=== PATIENT | male | born 1980 | race Caucasian/White ===

== ENCOUNTER 2017-07-31 10:21 | Emergency (ER) | payer MEDICAID ==
[~2017-07-31] VITALS: Ht 162.6 cm; Wt 79.5 kg
[2017-07-31 10:31] VITALS: BP 124/79
--- NOTE | 2017-07-31 10:44 | NUR ---
Patient ambulated to bed 12. RN evaluating patient at bedside.
--- NOTE | 2017-07-31 10:48 | NUR ---
37 bib self yo male with right eye pain x 3 days. Pt states he feels something is in his eye. Pt denies recent trauma. Pt describes sharp intermittent 8/10 pain in right eye without radiation. Redness noted to bl eyes. AOx4. Vss.
[2017-07-31] MEDS ORDERED: FLUORESCEIN OPTH STRIP 1 MG OP ONE (10:55)
--- NOTE | 2017-07-31 10:58 | NUR ---
Dr. Hawthorne evaluating patient at bedside.
[2017-07-31] MEDS ORDERED: FLUORESCEIN OPTH STRIP 1 MG ONE (11:05)
[2017-07-31 11:20] VITALS: BP 123/79
--- NOTE | 2017-07-31 11:20 | NUR ---
Patient discharged with v/s stable. Written and verbal after care instructions given and explained. Patient alert, oriented and verbalized understanding of instructions. Ambulatory with steady gait. All questions addressed prior to discharge. ID band removed. Patient advised to follow up with PMD. Rx of Motrin and Erythromycin given. Patient educated on indication of medication including possible reaction and side effects. Opportunity to ask questions provided and answered.
== END 2017-07-31 11:20 | disposition home or self-care (01) ==
LOC: MED 10:21
DX: H10.89 Other conjunctivitis (principal); R05 Cough
CPT/HCPCS: 99283